=== PATIENT | female | born 1995 | race Caucasian/White ===

== ENCOUNTER 2017-10-04 21:15 | Inpatient (IN) | payer BC ==
[~2017-10-04] VITALS: Ht 175.3 cm; Wt 89.9 kg
[2017-10-04] MEDS ORDERED: CEFTRIAXONE SOD 1 GM VIAL IV SCH (23:30)
[2017-10-05] VITALS: BP 113/60
[2017-10-05] MEDS: MORPHINE SULFATE 2 MG/ML SYR IV PRN ×2 (00:25→05:19)
[2017-10-05] MEDS: SODIUM CHLORIDE 0.9% 1000ML 1,000 ML IV SCH ×4 (00:25→15:35)
[2017-10-05] MEDS: ONDANSETRON HCL INJ 2 MG/ML VIAL IV PRN ×2 (03:16→16:46)
[2017-10-05] MEDS: HYDROMORPHONE 1MG/1ML INJ IV PRN ×4 (03:16→23:16)
[2017-10-05] MEDS: ACETAMINOPHEN 1000 MG/100 ML IV PRN ×2 (03:42→03:57)
[2017-10-05 04:00] VITALS: BP 125/63
[2017-10-05 06:07] VITALS: BP 113/60
[2017-10-05 07:50] LABS: BASOPHILS % 0.2 % (0.0-1.0); EOSINOPHILS % 0.1 % (0.0-6.0); HEMATOCRIT 33.9 % (34.2-44.1); HEMOGLOBIN 11.5 g/dL (12.0-16.0); LYMPHOCYTES # (AUTO) 2.1 (1.0-3.2); LYMPHOCYTES % 14.1 % (18.0-39.1); MEAN CORPUSCULAR HEMOGLOBIN 30.6 pg (28-32); MEAN CORPUSCULAR HGB CONC 33.9 g/dL (31-35); MEAN CORPUSCULAR VOLUME 90.2 fL (81-99); MONOCYTES # (AUTO) 1.5 (0.2-0.8); MONOCYTES % 10.4 % (4.4-11.3); NEUTROPHILS # (AUTO) 11.1 (2.1-6.9); NEUTROPHILS % 74.7 % (38.7-80.0); PLATELET COUNT 175 x10e3/uL (140-360); RED BLOOD COUNT 3.76 x10e6/uL (3.6-5.1); RED CELL DISTRIBUTION WIDTH 12.6 % (11.7-14.4)
[2017-10-05 08:00] VITALS: BP 114/63
[2017-10-05 08:14] LABS: ALANINE AMINOTRANSFERASE 13 IU/L (0-55); ALBUMIN 2.7 g/dL (3.5-5.0); ALBUMIN/GLOBULIN RATIO 0.9 (0.8-2.0); ALKALINE PHOSPHATASE 75 IU/L (40-150); ANION GAP 10.6 mmol/L (8-16); BLOOD UREA NITROGEN 5 mg/dL (7-26); BUN/CREATININE RATIO 7 (6-25); CARBON DIOXIDE 22 mmol/L (22-29); CHLORIDE 108 mmol/L (98-107); CREATININE, SERUM 0.67 mg/dL (0.57-1.11); EST GLOMERULAR FILTRATION RATE > 60 ML/MIN (60-); GLUCOSE 95 mg/dL (74-118); POTASSIUM 3.6 mmol/L (3.5-5.1); SODIUM 137 mmol/L (136-145)
[2017-10-05 08:52] LABS: BAND NEUTROPHILS % (MANUAL) 3 %; LYMPHOCYTES % (MANUAL) 15 % (19-48); MONOCYTES % (MANUAL) 4 % (3.4-9.0); NEUTROPHILS % (MANUAL) 78 % (40-74); PLATELET ESTIMATE ADEQUATE; PLATELET MORPHOLOGY COMMENT NORMAL; RBC MORPHOLOGY COMMENT NORMAL
[2017-10-05] MEDS ORDERED: KETOROLAC TROMETHAMINE 30 MG/ML VIAL IV NR (09:30)
[2017-10-05] MEDS ORDERED: ACETAMINOPHEN 325 MG TAB PO NR (11:30)
[2017-10-05 12:00] VITALS: BP 135/64
[2017-10-05] MEDS ORDERED: DIPHENHYDRAMINE HCL INJ 50 MG/ML VIAL IV PRN (12:00)
[2017-10-05] MEDS ORDERED: HYDROMORPHONE 2MG/ML INJ IV PRN (12:30)
[2017-10-05] MEDS ORDERED: MEROPENEM 1GM 100 ML IV SCH (14:00)
[2017-10-05] MEDS ORDERED: MEROPENEM 1 GM VIAL IV SCH (14:00)
[2017-10-05] MEDS: CIPROFLOXACIN 400 MG/D5W 200ML 200 ML IV SCH (15:35)
--- NOTE | 2017-10-05 16:25 | Diagnostic Imaging Report ---
EXAM: CT Abdomen and Pelvis WITHOUT contrast INDICATION: Bilateral nephritis COMPARISON: None. TECHNIQUE: Abdomen and pelvis were scanned utilizing a multidetector helical scanner from the lung base to the pubic symphysis without administration of IV contrast. Absence of intravenous contrast decreases sensitivity for detection of focal lesions and vascular pathology. Coronal and sagittal reformations were obtained. Routine protocol was performed. IV CONTRAST: None. ORAL CONTRAST: Water RADIATION DOSE: Total DLP: 634.2 mGy*cm Estimated effective dose: (DLP x 0.015 x size factor) mSv COMPLICATIONS: None FINDINGS: LINES and TUBES: None. LOWER THORAX: Minimal atelectasis in both lung bases. HEPATOBILIARY: No focal hepatic lesions. No biliary ductal dilation. GALLBLADDER: No radio-opaque stones or sludge. No wall thickening. SPLEEN: No splenomegaly. PANCREAS: No focal masses or ductal dilatation. ADRENALS: No adrenal nodules KIDNEYS/URETERS: No hydronephrosis. 5 mm linear calcification in the left renal parenchyma on series 3, image 16 may represent a tiny angiomyolipoma or dystrophic calcification. Differential diagnosis includes partial calcification of adjacent hypodensities. No stones. GI TRACT: No abnormal distention, wall thickening, or evidence of bowel obstruction. Appendix is normal. PELVIC ORGANS/BLADDER: Unremarkable. LYMPH NODES: No lymphadenopathy. VESSELS: Unremarkable. PERITONEUM / RETROPERITONEUM: No free air or fluid. BONES: Unremarkable. SOFT TISSUES: Unremarkable. IMPRESSION: No calcified nephrolithiasis or hydronephrosis. Signed by: Dr. Melonie Yeung M.D. on 10/05/2017 4:22 PM
[2017-10-05] MEDS: MEROPENEM 1 GM VIAL IV SCH (17:30)
[2017-10-05 20:00] VITALS: BP 101/51
[2017-10-06] MEDS: KETOROLAC TROMETHAMINE 30 MG/ML VIAL IM PRN ×2 (01:23→19:47)
[2017-10-06] MEDS: CIPROFLOXACIN 400 MG/D5W 200ML 200 ML IV SCH ×2 (01:37→14:10)
[2017-10-06] MEDS: ACETAMINOPHEN 325 MG TAB PO PRN ×2 (02:04→22:15)
[2017-10-06] MEDS: HYDROMORPHONE 1MG/1ML INJ IV PRN ×4 (03:42→21:47)
[2017-10-06 04:00] VITALS: BP 135/74
[2017-10-06] MEDS: MEROPENEM 1 GM VIAL IV SCH ×3 (05:49→21:38)
[2017-10-06 07:50] VITALS: BP 125/62
[2017-10-06 08:00] VITALS: BP 125/62
[2017-10-06 12:00] VITALS: BP 121/73
[2017-10-06] MEDS: SODIUM CHLORIDE 0.9% 1000ML 1,000 ML IV SCH ×3 (14:04→19:45)
--- NOTE | 2017-10-06 15:30 | Consultation ---
DATE OF CONSULTATION: REASON FOR CONSULTATION: Fever, chills, abdominal pain. HISTORY OF PRESENT ILLNESS: This patient who is very pleasant 22-year-old white female, denies any past medical history. 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 She is , but no kids. The patient who is in good health until about Saturday few days ago when she started feeling really bad, went to bed, woke up with severe pain on the right side, on the right flank, going down to the suprapubic area, fever, chills, really bad pain. She also has neck pain on the right side. Has some nausea. Patient came to the emergency room where she was admitted. Infectious disease was consulted. When I saw the patient, she was in tears and she was complaining of pain on the right side. Apparently, she was diagnosed with acute pyelonephritis. She was sent here. PAST MEDICAL HISTORY: She denies. PAST SURGICAL HISTORY: She denies. ALLERGIES: NKA. SOCIAL HISTORY: There is no smoking, drug abuse, or alcohol abuse. She is . FAMILY HISTORY: Otherwise, her mother had kidney stone. LABORATORY DATA: White count was 17.7, hemoglobin of 11, her platelet 186,000. Her test is negative. RSV mono was negative. She was given Rocephin. Chest x-ray was negative. She had CT scan which showed right kidney infection. PHYSICAL EXAMINATION: GENERAL: She is currently alert and oriented, does not seem to be in acute distress. VITAL SIGNS: Stable. Patient is febrile. HEENT: She does not appear icteric. NECK: Supple. CHEST: Clear bilaterally. COR: S1 and S2. No murmur. ABDOMEN: Soft. Bowel sounds present. No tenderness. EXTREMITIES: No edema. IMPRESSION: Sepsis secondary to pyelonephritis. Will put her on meropenem 500 intravenously q.6h. Will add Levaquin to assess therapy resistance. 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 Will discontinue Rocephin. Pain management, intravenous fluids. Would need to rule out stone at one point. Probably, will strain the urine. Will follow with you. Discussed with the family. Time spent 1 hour reviewing the chart, talking with the family, and discussing with RN. Job#: [id number]
[2017-10-06] MEDS: ONDANSETRON HCL INJ 2 MG/ML VIAL IV PRN (15:47)
[2017-10-06 16:00] VITALS: BP 131/75
[2017-10-06 20:00] VITALS: BP 110/56
[2017-10-07] VITALS: BP 124/62
[2017-10-07] MEDS: SODIUM CHLORIDE 0.9% 1000ML 1,000 ML IV SCH ×4 (01:25→16:56)
[2017-10-07] MEDS: CIPROFLOXACIN 400 MG/D5W 200ML 200 ML IV SCH ×2 (01:34→14:00)
[2017-10-07 04:00] VITALS: BP 121/75
[2017-10-07] MEDS: MEROPENEM 1 GM VIAL IV SCH ×3 (06:00→22:00)
[2017-10-07 06:43] LABS: BASOPHILS % 0.3 % (0.0-1.0); EOSINOPHILS # (AUTO) 0.1 (0.0-0.4); EOSINOPHILS % 0.7 % (0.0-6.0); HEMATOCRIT 29.2 % (34.2-44.1); LYMPHOCYTES # (AUTO) 1.8 (1.0-3.2); LYMPHOCYTES % 26.4 % (18.0-39.1); MEAN CORPUSCULAR HEMOGLOBIN 30.7 pg (28-32); MEAN CORPUSCULAR HGB CONC 34.2 g/dL (31-35); MEAN CORPUSCULAR VOLUME 89.6 fL (81-99); MONOCYTES # (AUTO) 0.5 (0.2-0.8); MONOCYTES % 7.9 % (4.4-11.3); NEUTROPHILS # (AUTO) 4.4 (2.1-6.9); NEUTROPHILS % 64.3 % (38.7-80.0); PLATELET COUNT 180 x10e3/uL (140-360); RED BLOOD COUNT 3.26 x10e6/uL (3.6-5.1); RED CELL DISTRIBUTION WIDTH 12.4 % (11.7-14.4)
[2017-10-07 07:05] LABS: INR 1.3; PROTHROMBIN TIME 15.2 seconds (11.9-14.5)
[2017-10-07 07:14] LABS: ALANINE AMINOTRANSFERASE 14 IU/L (0-55); ALBUMIN 2.4 g/dL (3.5-5.0); ALBUMIN/GLOBULIN RATIO 0.8 (0.8-2.0); ALKALINE PHOSPHATASE 77 IU/L (40-150); ANION GAP 12.2 mmol/L (8-16); BLOOD UREA NITROGEN < 5 mg/dL (7-26); CALCIUM 7.8 mg/dL (8.4-10.2); CARBON DIOXIDE 21 mmol/L (22-29); CHLORIDE 106 mmol/L (98-107); CREATININE, SERUM 0.57 mg/dL (0.57-1.11); EST GLOMERULAR FILTRATION RATE > 60 ML/MIN (60-); GLUCOSE 93 mg/dL (74-118); POTASSIUM 3.2 mmol/L (3.5-5.1); SODIUM 136 mmol/L (136-145)
[2017-10-07 07:16] LABS: BUN/CREATININE RATIO 9 (6-25)
[2017-10-07 08:42] VITALS: BP 136/85
--- NOTE | 2017-10-07 10:00 | Diagnostic Imaging Report ---
PROCEDURE:C-SPINE COMPLETE COMPARISON:None. INDICATIONS:NECK PAIN SINCE SATURDAY FINDINGS: The lateral view is visualized from the skull base to C7. The vertebral bodies are well-aligned. There are no fractures, lytic or blastic lesions. The disc-space heights are well-maintained. The C1/C2-odontoid interval is normal. The pre-vertebral soft tissues are normal. CONCLUSION: No acute radiographic abnormality. Dictated by: Jericho Hodges M.D. on 10/07/2017 at 10:00 Electronically approved by: Jericho Hodges M.D. on 10/07/2017 at 10:00
[2017-10-07] MEDS: HYDROMORPHONE 1MG/1ML INJ IV PRN ×2 (10:10→22:00)
[2017-10-07 12:18] VITALS: BP 139/83
[2017-10-07] MEDS: ONDANSETRON HCL INJ 2 MG/ML VIAL IV PRN ×3 (12:18→16:54)
--- NOTE | 2017-10-07 15:10 | Diagnostic Imaging Report ---
Examination: MRI BRAIN WITHOUT CONTRAST History: Headache. Neck pain Comparison studies: None Technique: Sagittal T2; axial DWI, FLAIR, GRE or SWI, T1, Coronal FLAIR. Intravenous contrast: None Findings: Scalp: No abnormal signal. No masses. Bone marrow: Normal in signal intensity. Brain volume: Adequate for age. No volume loss. Ventricles: Normal in size and configuration. No hydrocephalus. Extra-axial spaces: No abnormalities. Parenchyma: No abnormal signal intensities. No masses, hemorrhage, or acute or chronic vascular insults. Suprasellar and sellar region: No abnormalities. Craniocervical junction: No abnormalities. The foramen magnum is patent. No Chiari malformations. Vessels: Normal flow-voids in the arteries and sinuses. Additional findings:None. IMPRESSION: Normal noncontrast brain MRI. Signed by: Dr. Maritza Aaron M.D. on 10/07/2017 3:06 PM
[2017-10-07 15:35] VITALS: BP 121/64
[2017-10-07 20:23] VITALS: BP 118/68
[2017-10-07] MEDS: SALINE 0.65% NAS SOLN 1 SPRAY BTL SCH (22:00)
[2017-10-07] MEDS: NEOMYCIN/POLYMYXIN/BACITRACIN 15 GM TUBE TOP SCH (22:00)
[2017-10-08 00:47] VITALS: BP 118/65
[2017-10-08] MEDS: CIPROFLOXACIN 400 MG/D5W 200ML 200 ML IV SCH ×2 (01:53→14:00)
[2017-10-08] MEDS: HYDROMORPHONE 1MG/1ML INJ IV PRN ×4 (02:03→21:42)
[2017-10-08] MEDS: SODIUM CHLORIDE 0.9% 1000ML 1,000 ML IV SCH ×3 (05:05→18:25)
[2017-10-08 05:33] VITALS: BP 123/62
[2017-10-08] MEDS: MEROPENEM 1 GM VIAL IV SCH ×3 (05:33→21:24)
[2017-10-08] MEDS: SALINE 0.65% NAS SOLN 1 SPRAY BTL SCH ×5 (05:33→21:24)
[2017-10-08] MEDS ORDERED: MAGNESIUM SULFATE 2GM/50ML 50 ML IV ONE (06:00)
[2017-10-08] MEDS: NEOMYCIN/POLYMYXIN/BACITRACIN 15 GM TUBE TOP SCH ×3 (09:00→21:01)
[2017-10-08] MEDS: PREGABALIN 50 MG CAP PO SCH ×3 (09:00→21:01)
[2017-10-08] MEDS: PANTOPRAZOLE 40 MG 10ML VIAL IV SCH (09:00)
[2017-10-08 09:34] VITALS: BP 121/71
--- NOTE | 2017-10-08 12:25 | Progress Note ---
DATE: October 06, 2017 She states she is still having pain, but it is less, it is now 7/10. PHYSICAL EXAMINATION: GENERAL: She is currently alert, oriented, does not seem to be in acute distress. VITAL SIGNS: T-max 100.2, which is better than yesterday. HEENT: Normocephalic. Does not appear icteric. NECK: Supple. CHEST: Clear. COR: S1 and S2. No murmur. ABDOMEN: Soft. Bowel sounds present. No tenderness. EXTREMITIES: No edema. SKIN: No rash. Blood cultures are negative. Unfortunately, there were no urine cultures. White count is 14.85, hemoglobin 11, hematocrit 33. Sodium 137, potassium of 3.6, creatinine 0.67. CT scan without contrast showed no hydronephrosis, but there is 5 mm linear calcification in the left renal, represent tiny angiolipoma or calcification. IMPRESSION: Pyelonephritis, slowly better. Continue with intravenous fluids. She is currently on meropenem and ciprofloxacin. Will reassess in the morning. Job#: [id number]
[2017-10-08 12:28] VITALS: BP 123/76
--- NOTE | 2017-10-08 15:09 | Consultation ---
DATE OF CONSULTATION: October 07, 2017 HOSPITAL CONSULTATION I was kindly asked to see this 22-year-old woman for evaluation of epistaxis. Patient has no previous history of epistaxis until this admission and 2 days ago she developed bleeding down the back of her throat which stopped spontaneously. She then developed bleeding out of her right nostril. She reports that when she was she blew blood clots from both sides of her nose. History of present illness, past medical history and past surgical history were reviewed in detail in the chart. EXAMINATION: The tympanic membranes and external auditory canals were unremarkable. She had no clinically significant nasal septal deviation. Oral cavity and pharyngeal examination was normal. There was no palpable cervical adenopathy. On fiberoptic diagnostic rhinoscopy, bleeding points were identified on the anterior inferior turbinate bilaterally. After application of topical anesthesia, these bleeding points were cauterized with silver nitrate. ASSESSMENT: Epistaxis, treated with silver nitrate cautery identified bleeding points. PLAN 1. [place] nasal spray 2 puffs each side of nose q.4 h. while awake. 2. Bacitracin ointment to each nostril t.i.d. Job#: [id number]
[2017-10-08 17:25] VITALS: BP 119/72
[2017-10-08] MEDS ORDERED: OXYMETAZOLINE HCL 0.05% NAS 1 SPRAY BTL PRN (19:00)
[2017-10-08 21:00] VITALS: BP 121/84
[2017-10-08] MEDS ORDERED: OXYMETAZOLINE HCL 0.05% NAS 1 SPRAY BTL SCH (21:00)
[2017-10-09] VITALS (7 sets, daily range): BP systolic 104–130; BP diastolic 66–98
[2017-10-09] MEDS: HYDROMORPHONE 1MG/1ML INJ IV PRN ×3 (01:37→21:45)
[2017-10-09] MEDS: CIPROFLOXACIN 400 MG/D5W 200ML 200 ML IV SCH ×2 (03:57→13:22)
[2017-10-09] MEDS: SODIUM CHLORIDE 0.9% 1000ML 1,000 ML IV SCH ×2 (03:57→07:45)
[2017-10-09] MEDS: SALINE 0.65% NAS SOLN 1 SPRAY BTL SCH ×5 (05:26→21:45)
[2017-10-09] MEDS: MEROPENEM 1 GM VIAL IV SCH ×3 (05:53→21:45)
[2017-10-09 06:54] LABS: BASOPHILS % 0.5 % (0.0-1.0); EOSINOPHILS # (AUTO) 0.1 (0.0-0.4); EOSINOPHILS % 1.2 % (0.0-6.0); HEMOGLOBIN 11.3 g/dL (12.0-16.0); LYMPHOCYTES # (AUTO) 3.1 (1.0-3.2); MEAN CORPUSCULAR HEMOGLOBIN 30.1 pg (28-32); MEAN CORPUSCULAR HGB CONC 34.2 g/dL (31-35); MEAN CORPUSCULAR VOLUME 87.8 fL (81-99); MONOCYTES # (AUTO) 0.6 (0.2-0.8); MONOCYTES % 7.6 % (4.4-11.3); NEUTROPHILS # (AUTO) 4.4 (2.1-6.9); NEUTROPHILS % 53.2 % (38.7-80.0); PLATELET COUNT 266 x10e3/uL (140-360); RED BLOOD COUNT 3.76 x10e6/uL (3.6-5.1); RED CELL DISTRIBUTION WIDTH 12.3 % (11.7-14.4)
[2017-10-09 07:13] LABS: ALANINE AMINOTRANSFERASE 19 IU/L (0-55); ALBUMIN 2.8 g/dL (3.5-5.0); ALBUMIN/GLOBULIN RATIO 0.8 (0.8-2.0); ALKALINE PHOSPHATASE 79 IU/L (40-150); ANION GAP 12.3 mmol/L (8-16); BLOOD UREA NITROGEN < 5 mg/dL (7-26); CALCIUM 8.5 mg/dL (8.4-10.2); CARBON DIOXIDE 26 mmol/L (22-29); CHLORIDE 106 mmol/L (98-107); CREATININE, SERUM 0.63 mg/dL (0.57-1.11); EST GLOMERULAR FILTRATION RATE > 60 ML/MIN (60-); GLUCOSE 89 mg/dL (74-118); MAGNESIUM 1.8 MG/DL (1.3-2.1); POTASSIUM 3.3 mmol/L (3.5-5.1); SODIUM 141 mmol/L (136-145)
[2017-10-09 07:18] LABS: BUN/CREATININE RATIO 8 (6-25)
[2017-10-09] MEDS: PREGABALIN 50 MG CAP PO SCH ×3 (08:48→21:30)
[2017-10-09] MEDS: PANTOPRAZOLE 40 MG 10ML VIAL IV SCH (08:48)
[2017-10-09] MEDS: NEOMYCIN/POLYMYXIN/BACITRACIN 15 GM TUBE TOP SCH ×3 (08:48→21:30)
[2017-10-09] MEDS ORDERED: SODIUM CHLORIDE 0.9% 250ML 250 ML ONE (13:12)
[2017-10-09] MEDS ORDERED: TRAMADOL HCL 50 MG TAB PO PRN (13:15)
[2017-10-09] MEDS ORDERED: POTASSIUM CHLORIDE 20 MEQ TAB CR PO ONE (13:20)
[2017-10-10] VITALS: BP 112/71
[2017-10-10] MEDS: CIPROFLOXACIN 400 MG/D5W 200ML 200 ML IV SCH ×2 (02:15→13:58)
[2017-10-10 04:00] VITALS: BP 121/78
[2017-10-10] MEDS: MEROPENEM 1 GM VIAL IV SCH ×2 (05:34→13:58)
[2017-10-10] MEDS: SALINE 0.65% NAS SOLN 1 SPRAY BTL SCH ×3 (05:34→14:00)
[2017-10-10] MEDS: HYDROMORPHONE 1MG/1ML INJ IV PRN (06:36)
[2017-10-10 08:00] VITALS: BP 128/77
[2017-10-10] MEDS: ONDANSETRON HCL INJ 2 MG/ML VIAL IV PRN (08:00)
[2017-10-10] MEDS: PANTOPRAZOLE 40 MG 10ML VIAL IV SCH (08:00)
[2017-10-10] MEDS: PREGABALIN 50 MG CAP PO SCH ×2 (08:00→15:08)
[2017-10-10] MEDS: NEOMYCIN/POLYMYXIN/BACITRACIN 15 GM TUBE TOP SCH ×2 (08:01→15:08)
[2017-10-10 09:53] VITALS: BP 128/77
[2017-10-10 12:00] VITALS: BP 96/53
[2017-10-10] MEDS ORDERED: CEFTIN250 MG/5 M PO (14:26)
[2017-10-10] MEDS ORDERED: CIPRO500 MG PO (14:27)
[2017-10-10] MEDS ORDERED: ULTRAM50 MG PO (14:28)
[2017-10-10] MEDS ORDERED: LYRICA75 MG PO (14:30)
[2017-10-10 16:00] VITALS: BP 121/81
[2017-10-15] MEDS ORDERED: NEOMYCIN/POLYMYXIN/BACITRACIN 15 GM TUBE TOP SCH (09:00)
== END 2017-10-10 16:41 | disposition home or self-care (01) | DRG 854 ==
LOC: MED/SURG2 23:01
PROVIDERS: ADMIT Internal Medicine; ATTEND Internal Medicine
PROC: 02HV33Z Insertion of Infusion Device into Superior Vena Cava, Percutaneous Approach (ICD-10-PCS; principal; 2017-10-05)
PROC: 0W3Q8ZZ Control Bleeding in Respiratory Tract, Via Natural or Artificial Opening Endoscopic (ICD-10-PCS; 2017-10-07)
DX: A41.9 Sepsis, unspecified organism (principal); N12 Tubulo-interstitial nephritis, not specified as acute or chronic; R04.0 Epistaxis; R51 Headache; D64.9 Anemia, unspecified
CPT/HCPCS: 36415; 70551; 72050; 74176; 80053; 83735; 84702; 85025; 85610; 85730; 87040; 87086; J0696; J1170; J1200; J1885; J2185; J2270; J2405; J7030; J7050

== ENCOUNTER 2018-12-23 00:40 | Emergency (ER) | payer BC ==
[~2018-12-23] VITALS: Ht 175.3 cm; Wt 89.8 kg
[~2018-12-23 00:40] MED LIST: CEFTIN250 MG/5 M PO; CIPRO500 MG PO; LYRICA75 MG PO; ULTRAM50 MG PO
--- OUTSIDE RECORDS SUMMARY | 2018-12-23 00:42 | XMS REPORT | Clinical Summary ---
Author Author [facility] Organization [facility] Address Unknown Phone Unavailable Care Team Providers Care Cytology Manager Name Role Phone Asked, No Pcp PCP Unavailable Allergies Comments Active Allergy Reactions Severity Noted Date Codeine Itching 09/02/2018 Medications End Date Status Medication Sig Dispensed Refills Start Date 09/12/2018 traMADol (ULTRAM) 50 mg Take 1 tablet 20 tablet 0 tablet (50 mg total) 9 by mouth every 6 (six) hours as needed for severe pain for up to 10 days. Active Problems Not on file Encounters Care Team Description Date Type Specialty Amalia Damon MD Sprain of right ankle, unspecified ligament, initial encounter (Primary Dx) 09/02/2018 Emergency Emergency Medicine after 12/22/2017 Social History Date Tobacco Use Types Packs/Day Years Used Never Smoker Smokeless Tobacco: Never Used Alcohol Use Drinks/Week oz/Week Comments Yes Sex Assigned at Date Recorded Not on file Industry Job Start Date Occupation Not on file Not on file Not on file Travel End Travel History Travel Start No recent travel history available. Last Filed Vital Signs Time Taken Vital Sign Reading 09/02/2018 2:28 AM [facility] Blood Pressure 120/78 09/02/2018 2:28 AM SIGHTER Pulse 71 09/02/2018 2:28 AM SIGHTER Temperature 35.7 C (96.2 F) 09/02/2018 2:28 AM SIGHTER Respiratory Rate 16 09/02/2018 2:28 AM SIGHTER Oxygen Saturation 99% - Inhaled Oxygen - Concentration 09/02/2018 12:20 AM SIGHTER Weight 86.2 kg (190 lb) 09/02/2018 12:20 AM SIGHTER Height 175.3 cm (5' 9") 09/02/2018 12:20 AM SIGHTER Body Mass Index 28.06 Plan of Treatment Not on file Procedures Comments Procedure Name Priority Date/Time Associated Diagnosis [place] APPLY LOWER LEG SPLINT Routine 09/02/2018 1:53 AM SIGHTER after 12/22/2017 Results * Splint Application (09/02/2018 1:53 AM SIGHTER) Narrative Performed At Geeta Ballard NP-C 09/02/20184:25 AM Splint Application Performed by: Geeta Ballard NP-C Authorized by: Geeta Ballard NP-C Consent: Consent obtained:Verbal Consent given by:Patient Risks discussed:Discoloration, numbness, pain and swelling Alternatives discussed:No treatment Pre-procedure details: Sensation:Normal Skin color:Pateros Procedure details: Laterality:Right Location:Ankle Ankle:R ankle Cast type:Short leg Splint type:Short leg Supplies:Cotton padding, elastic bandage and Ortho-Glass Post-procedure details: Pain:Improved Sensation:Normal Skin color:Pateros Patient tolerance of procedure:Tolerated well, no immediate complications after 12/22/2017 Insurance Type Payer Benefit Subscriber ID Effective Phone Address Plan / Dates Group PPO [facility] xxxxxxxxxxxx [id number] [employer] resent Advance Directives Patient has advance care planning documents on file. For more information, kennedy figueroa contact: [facility] [address] [place] [address]
--- OUTSIDE RECORDS SUMMARY | 2018-12-23 00:42 | XMS REPORT ---
Author Author [facility] Address Unknown Phone Unavailable Care Team Providers Care Flue Cleaner Name Role Phone STEFANI MCLEAN Unavailable Unavailable Problems This patient has no known problems. Allergies, Adverse Reactions, Alerts This patient has no known allergies or adverse reactions. Medications This patient has no known medications. Results Test Description Test Time Test Comments Text Results Atomic Results Result Comments CERVICAL SPINE 4 OR 5 VIEWS [place] [address] Patient Name: SHEYLA MORELOS MR #: [id number] : 1995 Age/Sex: 22/F Req #: [id number] Adm Physician: STEFANI MCLEAN MD Ordered by: STEFANI MCLEAN MD Report #: [id number] Location: MED/SURG2 Room/Bed: [facility] Procedure: [id number] DX/CERVICAL SPINE 4 OR 5 VIEWS Exam Date: 10/07/17 Exam Time: 0810 REPORT STATUS: Signed PROCEDURE: C-SPINE COMPLETE COMPARISON: None. INDICATIONS: NECK PAIN SINCE SATURDAY FINDINGS: The lateral view is visualized from the skull base to C7. The vertebral bodies are well-aligned. There are no fractures, lytic or blastic lesions. The disc-space heights are well-maintained. The C1/C2-odontoid interval is normal. The pre-vertebral soft tissues are normal. CONCLUSION: No acute radiographic abnormality. Dictated by: Kenneth Bear M.D. on 10/07/2017 at 10:00 Electronically approved by: Kenneth Bear M.D. on 10/07/2017 at 10:00 Dictated By: KENNETH BEAR MD 1000 Transcribed By: NAVYA on 10/07/17 1000 COPY TO: STEFANI MCLEAN MD MRI BRAIN WO [place] [address] Patient Name: SHEYLA MORELOS MR #: [id number] : 1995 Age/Sex: 22/F Req #: [id number] Adm Physician: STEFANI MCLEAN MD Ordered by: STEFANI MCLEAN MD Report #: [id number] Location: MED/SURG2 Room/Bed: [facility] Procedure: [id number] MRI/MRI BRAIN WO Exam Date: Exam Time: REPORT STATUS: Signed Examination: MRI BRAIN WITHOUT CONTRAST History: Headache. Neck pain Comparison studies: None Technique: Sagittal T2; axial DWI, FLAIR, GRE or SWI, T1, Coronal FLAIR. Intravenous contrast: None Findings: Scalp: No abnormal signal. No masses. Bone marrow: Normal in signal intensity. Brain volume: Adequate for age. No volume loss. Ventricles: Normal in size and configuration. No hydrocephalus. Extra- axial spaces: No abnormalities. Parenchyma: No abnormal signal intensities. No masses, hemorrhage, or acute or chronic vascular insults. Suprasellar and sellar region: No abnormalities. Craniocervical junction: No abnormalities. The foramen magnum is patent. No Chiari malformations. Vessels: Normal flow-voids in the arteries and sinuses. Additional findings:None. IMPRESSION: Normal noncontrast brain MRI. Signed by: Dr. Maritza Aaron M.D. on 10/07/2017 3:06 PM Dictated By: MARITZA MONTANA MD 1506 Transcribed By: RUSTY on 10/07/17 1506 COPY TO: STEAFNI MCLEAN MD CT ABDOMEN/PELVIS WO [place] [address] Patient Name: SHEYLA MORELOS MR #: [id number] : 1995 Age/Sex: 22/F Req #: [id number] Adm Physician: STEFANI MCLEAN MD Ordered by: MARCELLO WELLER MD Report #: [id number] Location: MED/SURG2 Room/Bed: [facility] Procedure: [id number] CT/CT ABDOMEN/PELVIS WO Exam Date: 10/05/17 Exam Time: 1500 REPORT STATUS: Signed EXAM: CT Abdomen and Pelvis WITHOUT contrast INDICATION: Bilateral nephritis COMPARISON: None. TECHNIQUE: Abdomen and pelvis were scanned utilizing a multidetector helical scanner from the lung base to the pubic symphysis without administration of IV contrast. Absence of intravenous contrast decreases sensitivity for detection of focal lesions and vascular pathology. Coronal and sagittal reformations were obtained. Routine protocol was performed. IV CONTRAST: None. ORAL CONTRAST: Water RADIATION DOSE: Total DLP: 634.2 mGy*cm Estimated effective dose: (DLP x 0.015 x size factor) mSv COMPLICATIONS: None FINDINGS: LINES and TUBES: None. LOWER THORAX: Minimal atelectasis in both lung bases. HEPATOBILIARY: No focal hepatic lesions. No biliary ductal dilation. GALLBLADDER: No radio- opaque stones or sludge. No wall thickening. SPLEEN: No splenomegaly. PANCREAS: No focal masses or ductal dilatation. ADRENALS: No adrenal nodules KIDNEYS/URETERS: No hydronephrosis. 5 mm linear calcification in the left renal parenchyma on series 3, image 16 may represent a tiny angiomyolipoma or dystrophic calcification. Differential diagnosis includes partial calcification of adjacent hypodensities. No stones. GI TRACT: No abnormal distention, wall thickening, or evidence of bowel obstruction. Appendix is normal. PELVIC ORGANS/BLADDER: Unremarkable. LYMPH NODES: No lymphadenopathy. VESSELS: Unremarkable. PERITONEUM / RETROPERITONEUM: No free air or fluid. BONES: Unremarkable. SOFT TISSUES: Unremarkable. IMPRESSION: No calcified nephrolithiasis or hydronephrosis. Signed by: Dr. Jimmy Arredondo M.D. on 10/05/2017 4:22 PM Dictated By: JIMMY ARREDONDO MD 1623 Transcribed By: RUSTY on 10/05/17 1622 COPY TO: MARCELLO WELLER MD
[2018-12-23] MEDS ORDERED: SODIUM CHLORIDE 0.9% 1000ML 1,000 ML IV STA (01:34)
[2018-12-23] MEDS ORDERED: ONDANSETRON HCL INJ 2MG/ML 2ML 2 MG/ML VIAL IV STA (01:34)
[2018-12-23] MEDS ORDERED: MORPHINE SULFATE INJ 4 MG/ML INJ 1ML IV ONE (01:45)
[2018-12-23 01:53] LABS: BASOPHILS % 0.7 % (0.0-1.0); EOSINOPHILS # (AUTO) 0.1 (0.0-0.4); HEMATOCRIT 43.6 % (34.2-44.1); HEMOGLOBIN 14.6 g/dL (12.0-16.0); LYMPHOCYTES # (AUTO) 1.9 (1.0-3.2); LYMPHOCYTES % 32.1 % (18.0-39.1); MEAN CORPUSCULAR HEMOGLOBIN 30.8 pg (28-32); MEAN CORPUSCULAR HGB CONC 33.5 g/dL (31-35); MONOCYTES # (AUTO) 0.5 (0.2-0.8); MONOCYTES % 8.7 % (4.4-11.3); NEUTROPHILS # (AUTO) 3.3 (2.1-6.9); NEUTROPHILS % 57.2 % (38.7-80.0); PLATELET COUNT 263 x10e3/uL (140-360); RED BLOOD COUNT 4.74 x10e6/uL (3.6-5.1); RED CELL DISTRIBUTION WIDTH 12.6 % (11.7-14.4)
[2018-12-23 02:21] LABS: INR 1.01; PROTHROMBIN TIME 13.8 seconds (11.9-14.5)
[2018-12-23 02:22] LABS: PARTIAL THROMBOPLASTIN TIME 35.1 seconds (23.8-35.5)
[2018-12-23 02:33] LABS: ALANINE AMINOTRANSFERASE 29 IU/L (0-55); ALBUMIN 4.2 g/dL (3.5-5.0); ALBUMIN/GLOBULIN RATIO 1.2 (0.8-2.0); ALKALINE PHOSPHATASE 119 IU/L (40-150); ANION GAP 12.3 mmol/L (8-16); BLOOD UREA NITROGEN 15 mg/dL (7-26); BUN/CREATININE RATIO 19 (6-25); CARBON DIOXIDE 27 mmol/L (22-29); CHLORIDE 104 mmol/L (98-107); EST GLOMERULAR FILTRATION RATE > 60 ML/MIN (60-); GLUCOSE 98 mg/dL (74-118); MAGNESIUM 2.6 MG/DL (1.3-2.1); POTASSIUM 4.3 mmol/L (3.5-5.1); SODIUM 139 mmol/L (136-145)
[2018-12-23 02:53] VITALS: BP 97/53
[2018-12-23 03:18] LABS: CLARITY,URINE CLOUDY (CLEAR); COLOR,URINE YELLOW (YELLOW); KETONES,URINE NEGATIVE (NEGATIVE); LEUKOCYTE ESTERASE ,URINE NEGATIVE (NEGATIVE); NITRITE,URINE NEGATIVE (NEGATIVE); PROTEIN,URINE DIPSTICK TRACE (NEGATIVE); URINE UROBILINOGEN 1 mg/dL (0.2 - 1)
[2018-12-23 03:19] LABS: BILIRUBIN,URINE NEGATIVE (NEGATIVE); PREGNANCY TEST, URINE NEGATIVE (NEGATIVE)
[2018-12-23 03:22] LABS: BACTERIA,URINE MANY /HPF; EPITHELIAL CELLS,URINE FEW /LPF; TRANSITIONAL EPI CELLS,URINE MODERATE
[2018-12-23] MEDS ORDERED: PIPER-TAZ 3.375 GM 50 ML IV ONE (03:30)
[2018-12-23] MEDS ORDERED: SODIUM CHLORIDE 0.9% 50ML 50 ML ONE (03:33)
[2018-12-23] MEDS ORDERED: IOPAMIDOL 370 MG/ML 200 ML INFUS..BTL INJ ONE (03:34)
[2018-12-23] MEDS ORDERED: KETOROLAC TROMETHAMINE 30 MG/ML VIAL IV STA (04:22)
--- NOTE | 2018-12-23 04:25 | Diagnostic Imaging Report ---
EXAMINATION: CT of the abdomen and pelvis with contrast. TECHNIQUE: Helical CT images of the abdomen and pelvis were performed from the lung bases to the lesser trochanters after the intravenous administration of 100 cc of Isovue 300 and the oral administration of none. Coronal and sagittal reformatted images were obtained.Dose modulation, iterative reconstruction, and/or weight based adjustment of the mA/kV was utilized to reduce the radiation dose to as low as reasonably achievable. COMPARISON: None. CLINICAL HISTORY: DISCUSSION: ABDOMEN/PELVIS: LOWER THORAX:Unremarkable. HEPATOBILIARY: No focal hepatic lesions. No intra-or extrahepatic biliary ductal dilation. The gallbladder is normal. SPLEEN: No splenomegaly. PANCREAS: No focal masses or ductal dilatation. ADRENALS: No adrenal nodules. KIDNEYS/URETERS: No hydronephrosis, stones, or solid mass lesions. PELVIC ORGANS/BLADDER: The bladder is normal. PERITONEUM/RETROPERITONEUM: No free air or fluid. LYMPH NODES: No intra-abdominal, retroperitoneal, pelvic or inguinal lymphadenopathy. VESSELS: Unremarkable. GI TRACT: No distention or wall thickening. The appendix is normal. BONES AND SOFT TISSUE: No bony destructive lesions. No soft tissue abnormalities. IMPRESSION: No acute CT finding. Signed by: Dr. Peter Covington M.D. on 12/23/2018 4:21 AM
== END 2018-12-23 05:31 | disposition home or self-care (01) ==
LOC: ER 00:40
DX: R10.31 Right lower quadrant pain (principal); R11.0 Nausea; M54.5 Low back pain; N30.91 Cystitis, unspecified with hematuria
CPT/HCPCS: 36415; 74177; 80053; 81001; 81025; 83735; 85025; 85610; 85730; 87086; 87186; 96374; 96375; 99284; J1885; J2270; J2405; J2543; J7030; Q9967

== ENCOUNTER 2022-04-20 15:45 | Inpatient (IN) | payer BC ==
[~2022-04-20] VITALS: Ht 175.3 cm; Wt 97.5 kg
[2022-04-20] MEDS ORDERED: ONDANSETRON HCL INJ 2MG/ML 2ML 2 MG/ML VIAL IV STA (16:39)
[2022-04-20] MEDS ORDERED: KETOROLAC TROMETHAMINE 30 MG/ML VIAL IV STA (16:39)
[2022-04-20] MEDS ORDERED: DEXAMETHASONE SOD PHOS 10 MG/1 ML VIAL IV ONE (16:45)
[2022-04-20] MEDS ORDERED: DIPHENHYDRAMINE HCL 25 MG CAP PO ONE (16:45)
[2022-04-20] MEDS ORDERED: SODIUM CHLORIDE 0.9% 1000ML 1,000 ML IV ONE (16:45)
[2022-04-20] MEDS ORDERED: Morphine 4mg INJECTION 4 MG/ML INJ IV PRN (17:00)
[2022-04-20 17:13] LABS: BASOPHILS % 0.2 % (0.0-1.0); HEMATOCRIT 40.3 % (34.2-44.1); HEMOGLOBIN 13.1 g/dL (12.0-16.0); LYMPHOCYTES # (AUTO) 2.5 (1.0-3.2); LYMPHOCYTES % 19.6 % (18.0-39.1); MEAN CORPUSCULAR HEMOGLOBIN 29.1 pg (28-32); MEAN CORPUSCULAR HGB CONC 32.5 g/dL (31-35); MEAN CORPUSCULAR VOLUME 89.6 fL (81-99); MONOCYTES # (AUTO) 0.7 (0.2-0.8); MONOCYTES % 5.4 % (4.4-11.3); NEUTROPHILS # (AUTO) 9.3 (2.1-6.9); NEUTROPHILS % 74.4 % (38.7-80.0); PLATELET COUNT 333 x10e3/uL (140-360)
[2022-04-20] MEDS: Morphine 4mg INJECTION 4 MG/ML INJ IV PRN ×2 (17:17→22:07)
[2022-04-20 17:34] LABS: ALANINE AMINOTRANSFERASE 31 IU/L (0-55); ALBUMIN 3.6 g/dL (3.5-5.0); ALBUMIN/GLOBULIN RATIO 0.9 (0.8-2.0); ALKALINE PHOSPHATASE 101 IU/L (40-150); ANION GAP 15.8 mmol/L (8-16); BLOOD UREA NITROGEN 15 mg/dL (7-26); BUN/CREATININE RATIO 19 (6-25); CARBON DIOXIDE 22 mmol/L (22-29); CHLORIDE 104 mmol/L (98-107); CREATININE, SERUM 0.79 mg/dL (0.57-1.11); GLUCOSE 111 mg/dL (74-118); SODIUM 138 mmol/L (136-145)
[2022-04-20 17:35] LABS: POTASSIUM 3.8 mmol/L (3.5-5.1)
[2022-04-20] MEDS: PROMETHAZINE HCL (IM) 25 MG/ML VIAL IM PRN (17:46)
[2022-04-20] MEDS: FENTANYL 25 MCG/HR PATCH TOP SCH (17:46)
[2022-04-20] MEDS: SODIUM CHLORIDE 0.9% 1000ML 1,000 ML IV SCH (18:52)
[2022-04-20 21:32] VITALS: BP 135/89
[2022-04-20 22:00] VITALS: BP 131/98
[2022-04-21] VITALS (8 sets, daily range): BP systolic 113–140; BP diastolic 60–96
[2022-04-21] MEDS: SODIUM CHLORIDE 0.9% 1000ML 1,000 ML IV SCH ×3 (01:00→19:33)
[2022-04-21] MEDS: HYDROMORPHONE 1MG/1ML INJ IV PRN ×6 (01:42→22:24)
[2022-04-21 06:25] LABS: BASOPHILS # (AUTO) 0.1 (0.0-0.1); BASOPHILS % 0.6 % (0.0-1.0); EOSINOPHILS % 0.1 % (0.0-6.0); HEMATOCRIT 39.8 % (34.2-44.1); HEMOGLOBIN 12.5 g/dL (12.0-16.0); LYMPHOCYTES # (AUTO) 1.1 (1.0-3.2); LYMPHOCYTES % 10.7 % (18.0-39.1); MEAN CORPUSCULAR HGB CONC 31.4 g/dL (31-35); MEAN CORPUSCULAR VOLUME 95.4 fL (81-99); MONOCYTES # (AUTO) 0.2 (0.2-0.8); MONOCYTES % 2.4 % (4.4-11.3); NEUTROPHILS # (AUTO) 8.4 (2.1-6.9); NEUTROPHILS % 85.3 % (38.7-80.0); PLATELET COUNT 333 x10e3/uL (140-360); RED BLOOD COUNT 4.17 x10e6/uL (3.6-5.1); RED CELL DISTRIBUTION WIDTH 13.2 % (11.7-14.4)
[2022-04-21 06:51] LABS: ALBUMIN 3.2 g/dL (3.5-5.0); CALCIUM 8.3 mg/dL (8.4-10.2); CREATININE, SERUM 0.7 mg/dL (0.57-1.11)
[2022-04-21] MEDS: FAMOTIDINE 20 MG TAB PO SCH ×2 (09:06→16:43)
[2022-04-21] MEDS ORDERED: DIPHENHYDRAMINE HCL 25 MG CAP PO PRN (11:30)
[2022-04-21] MEDS: TRAMADOL HCL 50 MG TAB PO PRN ×2 (12:06→19:34)
[2022-04-21] MEDS: ACETAMINOPHEN 325 MG TAB PO PRN (16:42)
[2022-04-21] MEDS: IBUPROFEN 400 MG TAB PO PRN (17:45)
[2022-04-21] MEDS: PROMETHAZINE 12.5MG/ NACL 0.9% 12.5 MG/50 ML BAG IV PRN (18:27)
[2022-04-22] VITALS (8 sets, daily range): BP systolic 122–143; BP diastolic 72–101
[2022-04-22] MEDS: SODIUM CHLORIDE 0.9% 1000ML 1,000 ML IV SCH (02:04)
[2022-04-22] MEDS: HYDROMORPHONE 1MG/1ML INJ IV PRN ×2 (02:05→06:38)
[2022-04-22] MEDS: TRAMADOL HCL 50 MG TAB PO PRN (07:46)
[2022-04-22] MEDS: FAMOTIDINE 20 MG TAB PO SCH ×2 (07:46→15:09)
[2022-04-22] MEDS: ONDANSETRON HCL INJ 2MG/ML 2ML 2 MG/ML VIAL IV PRN ×4 (08:20→22:00)
[2022-04-22] MEDS ORDERED: ACETAMIN/BUTALBITAL/CAFFEINE TAB PO PRN (11:45)
[2022-04-22] MEDS: IBUPROFEN 400 MG TAB PO PRN (13:40)
[2022-04-22] MEDS ORDERED: KETOROLAC TROMETHAMINE 30 MG/ML VIAL IV ONE (15:15)
[2022-04-22] MEDS: ACETAMINOPHEN 325 MG TAB PO PRN (17:20)
[2022-04-22] MEDS: PROMETHAZINE 12.5MG/ NACL 0.9% 12.5 MG/50 ML BAG IV PRN ×2 (17:20→23:35)
[2022-04-22] MEDS: ALPRAZOLAM 0.5 MG TAB PO PRN ×2 (17:50→23:30)
[2022-04-22] MEDS: ACETAMIN/BUTALBITAL/CAFFEINE TAB PO SCH (20:52)
[2022-04-22] MEDS: DOCUSATE SODIUM 100 MG CAP PO SCH (20:52)
[2022-04-22] MEDS: SENNA-S TABLET PO SCH (20:52)
[2022-04-23] VITALS (7 sets, daily range): BP systolic 98–113; BP diastolic 59–75
[2022-04-23] MEDS: ACETAMIN/BUTALBITAL/CAFFEINE TAB PO SCH ×3 (05:03→20:12)
[2022-04-23] MEDS: ONDANSETRON HCL INJ 2MG/ML 2ML 2 MG/ML VIAL IV PRN ×2 (05:59→19:43)
[2022-04-23] MEDS: FAMOTIDINE 20 MG TAB PO SCH ×2 (07:30→16:36)
[2022-04-23] MEDS: DOCUSATE SODIUM 100 MG CAP PO SCH ×2 (07:36→16:36)
[2022-04-23] MEDS: SENNA-S TABLET PO SCH ×2 (07:37→16:36)
[2022-04-23] MEDS: PROMETHAZINE HCL (IM) 25 MG/ML VIAL IM PRN (09:10)
[2022-04-23] MEDS: PROMETHAZINE 12.5MG/ NACL 0.9% 12.5 MG/50 ML BAG IV PRN ×2 (09:10→17:05)
[2022-04-23] MEDS: IBUPROFEN 400 MG TAB PO PRN ×2 (09:11→17:05)
[2022-04-23] MEDS ORDERED: SODIUM CHLORIDE 0.9% 250ML 250 ML ONE (09:21)
[2022-04-23 09:25] LABS: BASOPHILS # (AUTO) 0.1 (0.0-0.1); BASOPHILS % 0.4 % (0.0-1.0); EOSINOPHILS # (AUTO) 0.1 (0.0-0.4); EOSINOPHILS % 0.4 % (0.0-6.0); HEMATOCRIT 39.2 % (34.2-44.1); HEMOGLOBIN 13.5 g/dL (12.0-16.0); LYMPHOCYTES # (AUTO) 1.7 (1.0-3.2); LYMPHOCYTES % 12.2 % (18.0-39.1); MEAN CORPUSCULAR HEMOGLOBIN 29.3 pg (28-32); MEAN CORPUSCULAR HGB CONC 34.4 g/dL (31-35); MONOCYTES # (AUTO) 0.8 (0.2-0.8); MONOCYTES % 5.6 % (4.4-11.3); NEUTROPHILS # (AUTO) 11.3 (2.1-6.9); NEUTROPHILS % 80.6 % (38.7-80.0); PLATELET COUNT 354 x10e3/uL (140-360); RED BLOOD COUNT 4.61 x10e6/uL (3.6-5.1); RED CELL DISTRIBUTION WIDTH 12.7 % (11.7-14.4)
[2022-04-23 09:38] LABS: ANION GAP 16.1 mmol/L (8-16); CALCIUM 8.7 mg/dL (8.4-10.2); CREATININE, SERUM 0.7 mg/dL (0.57-1.11); MAGNESIUM 2.3 MG/DL (1.3-2.1); PHOSPHORUS 3.3 MG/DL (2.3-4.7); POTASSIUM 4.1 mmol/L (3.5-5.1)
[2022-04-23] MEDS: ALPRAZOLAM 0.5 MG TAB PO PRN ×2 (12:03→20:25)
[2022-04-23] MEDS ORDERED: PROPOFOL IV EMULSION 10 MG/ML 20 ML VIAL ONE (12:15)
[2022-04-23] MEDS ORDERED: POVIDONE IODINE 0.05% 0.05 % ML PO ONE (12:15)
[2022-04-23] MEDS ORDERED: MIDAZOLAM HCL 2 MG/2 ML VIAL ONE (13:15)
[2022-04-23] MEDS ORDERED: FENTANYL CITRATE/PF 100MCG/2 ML INJ ONE (13:15)
[2022-04-23] MEDS ORDERED: LIDOCAINE HCL 1% LOCAL INJ 20 ML VIAL ONE (15:04)
[2022-04-23] MEDS ORDERED: IOPAMIDOL 300MG/ML 100 ML INFUS..BTL IV ONE (15:11)
[2022-04-23] MEDS ORDERED: SODIUM CHLORIDE 0.9% 500ML 500 ML ONE (15:43)
[2022-04-23] MEDS: FENTANYL 25 MCG/HR PATCH TOP SCH (16:36)
[2022-04-23] MEDS: CHLORPROMAZINE HCL IV SCH ×2 (16:36→20:12)
[2022-04-23] MEDS: SODIUM CHLORIDE 0.9% IV SCH ×2 (16:36→20:12)
[2022-04-23] MEDS ORDERED: CHLORPROMAZINE HCL INJ 25 MG/ML AMP IV SCH (18:00)
[2022-04-24] MEDS: CHLORPROMAZINE HCL IV SCH ×2 (03:48→09:00)
[2022-04-24] MEDS: SODIUM CHLORIDE 0.9% IV SCH ×2 (03:48→09:00)
[2022-04-24] MEDS: ACETAMIN/BUTALBITAL/CAFFEINE TAB PO SCH (03:49)
[2022-04-24 07:47] VITALS: BP 121/58
[2022-04-24 08:47] VITALS: BP 121/58
[2022-04-24] MEDS ORDERED: CYCLOBENZAPRINE5 MG PO (09:00)
[2022-04-24] MEDS ORDERED: Ibuprofen PO (09:00)
[2022-04-24] MEDS ORDERED: ACETAMINOPHEN500 MG PO (09:00)
[2022-04-24] MEDS: SENNA-S TABLET PO SCH (10:01)
[2022-04-24] MEDS: DOCUSATE SODIUM 100 MG CAP PO SCH (10:01)
[2022-04-24] MEDS: FAMOTIDINE 20 MG TAB PO SCH (10:02)
[2022-04-24] MEDS: IBUPROFEN 400 MG TAB PO PRN (10:04)
[2022-04-24] MEDS: ACETAMINOPHEN 325 MG TAB PO PRN (10:05)
[2022-04-24 11:49] VITALS: BP 95/52
== END 2022-04-24 12:06 | disposition home or self-care (01) | DRG 76 ==
LOC: ER 15:56 → ERHOLD 16:57 → MED/SURG3 21:54
PROVIDERS: ADMIT Internal Medicine; ATTEND Internal Medicine
PROC: 009U3ZX Drainage of Spinal Canal, Percutaneous Approach, Diagnostic (ICD-10-PCS; principal; 2022-04-23)
DX: A87.9 Viral meningitis, unspecified (principal); J10.89 Influenza due to other identified influenza virus with other manifestations; E66.09 Other obesity due to excess calories; Z68.30 Body mass index [BMI] 30.0-30.9, adult; Z20.822 Contact with and (suspected) exposure to COVID-19; F90.9 Attention-deficit hyperactivity disorder, unspecified type; G43.909 Migraine, unspecified, not intractable, without status migrainosus; G97.1 Other reaction to spinal and lumbar puncture
CPT/HCPCS: 0223U; 36415; 62273; 70450; 74470; 80048; 80053; 82948; 83036; 83735; 84100; 84702; 85025; 99284; J1100; J1170; J1885; J2001; J2250; J2270; J2405; J2550; J3010; J3230; J7030; J7040; J7050; Q9967